=== PATIENT | female | born 1955 | race Two or more races ===

== ENCOUNTER 2016-04-30 16:24 | Outpatient (CLI) | payer OTHER | END 2016-04-30 16:25 | disposition home or self-care (01) | DX: R10.2 Pelvic and perineal pain (principal) ==

== ENCOUNTER 2018-06-19 08:00 | Outpatient (CLI) | payer BC, OTHER | END 2018-06-19 23:59 | disposition home or self-care (01) | LOC: LAB.R 08:00 | PROVIDERS: ATTEND Physician Assistant | DX: R35.0 Frequency of micturition (principal) | CPT/HCPCS: 87086 ==

== ENCOUNTER 2018-07-22 07:48 | Outpatient (CLI) | payer BC ==
[2018-07-22] MEDS ORDERED: IOVERSOL 320 100 ML VIAL IVP ONE ×2 (08:11→08:13)
[2018-07-22 08:12] LABS: CALCIUM 9.6 mg/dL (8.5-10.3); CREATININE 0.8 mg/dL (0.4-1.0)
--- NOTE | 2018-07-23 18:17 | CT Report ---
Reason: HEMATURIA GROSS,FLANK PAIN,RIGHT Procedure Date: 07/22/2018 Accession Number: [id number] / [id number] Procedure: CT - IVP CPT Code: FULL RESULT: EXAM: CT ABDOMEN AND PELVIS WITHOUT AND WITH CONTRAST (CT IVP) EXAM DATE: 07/22/2018 08:41 AM. CLINICAL HISTORY: HEMATURIA GROSS,FLANK PAIN,RIGHT. COMPARISONS: PELVIC W/TRANSVAGINAL 04/30/2016 5:34 PM. TECHNIQUE: Routine helical imaging was performed through the kidneys, ureters and bladder in the precontrast, postcontrast and delayed phase. IV Contrast: OPTI 320 100 ML. Reconstructions: Coronal and sagittal. In accordance with CT protocol optimization, one or more of the following dose reduction techniques were utilized for this exam: automated exposure control, adjustment of mA and/or KV based on patient size, or use of iterative reconstructive technique. FINDINGS: Lung Bases: Unremarkable. Right Kidney/Ureter: No stones, hydronephrosis, or solid-appearing masses. Left Kidney/Ureter: No stones, hydronephrosis, or solid-appearing masses. Other Abdominal Organs: The liver, spleen, pancreas, gallbladder, and adrenal glands are unremarkable. Peritoneal Cavity/Bowel: No free fluid, free air or adenopathy. No masses. Bowel loops appear unremarkable with note of moderate stool burden. Pelvic Organs: No bladder stones, obstruction or masses. The visualized pelvic organs are unremarkable. Vasculature: Normal. Bones: No significant abnormality. Other: Breast implants. IMPRESSION: Negative CT IVP. No urinary tract solid masses, stones, or obstruction. RADIA
== END 2018-07-22 07:49 | disposition home or self-care (01) ==
LOC: LAB 07:48
PROVIDERS: ATTEND Family Medicine
DX: R10.9 Unspecified abdominal pain (principal); R31.0 Gross hematuria
CPT/HCPCS: 36415; 74178; 80048; Q9967

== ENCOUNTER 2018-08-10 13:34 | Outpatient (CLI) | payer BC ==
--- NOTE | 2018-08-10 15:28 | DEXA Report ---
Reason: BONE DISORDER Procedure Date: 08/10/2018 Accession Number: [id number] / [id number] Procedure: DEX - Dexa Spine and/or Hip CPT Code: FULL RESULT: EXAM: Dexa Spine and/or Hip DATE: 08/10/2018 2:14 PM CLINICAL HISTORY: BONE DISORDER TECHNIQUE: Dual energy x-ray absorptiometry (DXA) was performed on a [employer] System. Regions measured are the AP Spine, femoral neck, and if needed forearm. COMPARISON: None. In accordance with the International Society for Clinical Densitometry (ISCD) guidelines, data from previous exams may be reanalyzed using current recommendations and techniques. This is done to allow a more accurate basis for comparison with the current study. FINDINGS: The data for the lumbar spine is as follows: BMD (g/cm/cm) T-SCORE Z-SCORE REGION L1 0.973 -1.3 0.2 L2 1.033 -1.4 0.1 L3 1.194 0.0 1.4 L4 1.176 -0.2 1.3 TOTAL 1.105 -0.6 0.8 NOTE: All evaluable vertebrae are used for classification The data for the hip is as follows: BMD (g/cm/cm) T-SCORE Z-SCORE REGION Neck 0.815 -1.6 -0.2 TOTAL 0.866 -1.1 0.0 NOTE: The femoral neck or total proximal femur, whichever is lowest, is used for classification. IMPRESSION: THE WHO CLASSIFICATION BASED ON THE INTERNATIONAL REFERENCE STANDARD IS OSTEOPENIA. THE FRACTURE RISK IS INCREASED. RECOMMENDATION: Patients with diagnosis of osteoporosis or osteopenia should have regular bone mineral density assessment. For those eligible for Medicare, routine testing is allowed once every 2 years. Testing frequency can be increased for patients who have rapidly progressing disease or for those who are receiving medical therapy to restore bone mass. COMMENT: World Health Organization (WHO) definitions for osteoporosis and osteopenia: NORMAL BMD: T-score at -1.0 or higher, fracture risk is low OSTEOPENIA BMD: T-score between -1.0 and -2.5, fracture risk is increased. OSTEOPOROSIS BMD: T-score at -2.5 or lower, fracture risk is high. National Osteoporosis Foundation recommends: 1. Obtain adequate dietary calcium (at least 1200 mg per day) and vitamin D (400-800 international units per day). 2. Participate, as appropriate, in regular weightbearing and muscle-strengthening exercise. 3. Avoid tobacco use and reduce alcohol and caffeine intake. 4. For more detailed information see the website at www.NOF.org.
== END 2018-08-10 13:35 | disposition home or self-care (01) ==
LOC: DI 13:34
PROVIDERS: ATTEND Family Medicine
DX: M85.88 Other specified disorders of bone density and structure, other site (principal)
CPT/HCPCS: 77080

== ENCOUNTER 2018-08-10 13:42 | Outpatient (CLI) | payer BC ==
--- NOTE | 2018-08-10 15:13 | Mammography Report ---
Reason: SCREEING MAMMO Procedure Date: 08/10/2018 Accession Number: [id number] / [id number] Procedure: PRETTY - Screening Mammo Impl w/Job CPT Code: FULL RESULT: EXAM: Screening Mammo Impl w/Job DATE: 08/10/2018 2:23 PM CLINICAL HISTORY: Screening TECHNIQUE: (B) - Bilateral CC and MLO views were obtained. COMPARISON: 12/16/2016 PARENCHYMAL PATTERN: (A) - The breasts demonstrate scattered fibroglandular densities bilaterally. FINDINGS: No change in superior right intracapsular implant rupture. There are no suspicious masses, calcifications, or areas of distortion. IMPRESSION: Benign findings. BI-RADS category 2. RECOMMENDATION: (ANNUAL) - Recommend routine annual screening mammography. BI-RADS CATEGORY: (2) - Benign Findings. STANDARD QUALIFYING STATEMENTS: 1. This examination was not reviewed with the aid of Computer-Aided Detection (CAD). 2. A negative or benign imaging report should not preclude biopsy if clinically suspicious findings are present. 3. Dense breasts may obscure an underlying neoplasm. 4. This examination was reviewed with the aid of 3D breast imaging (tomosynthesis).
== END 2018-08-10 13:43 | disposition home or self-care (01) ==
LOC: DI 13:42
PROVIDERS: ATTEND Family Medicine
DX: Z12.31 Encounter for screening mammogram for malignant neoplasm of breast (principal); T85.43XA Leakage of breast prosthesis and implant, initial encounter
CPT/HCPCS: 77063; 77067

== ENCOUNTER 2019-09-10 09:30 | Outpatient (CLI) | payer BC | END 2019-09-10 23:59 | disposition home or self-care (01) | LOC: LAB.R 09:30 | PROVIDERS: ATTEND Physician Assistant Medical | DX: R30.0 Dysuria (principal) | CPT/HCPCS: 87086 ==

== ENCOUNTER 2019-09-17 16:04 | Outpatient (CLI) | payer BC ==
[2019-09-17 18:08] LABS: BILIRUBIN,URINE NEGATIVE (NEGATIVE); GLUCOSE, URINE (UA) NEGATIVE (NEGATIVE); KETONES,URINE (UA) NEGATIVE (NEGATIVE); LEUKOCYTE ESTERASE, URINE NEGATIVE (NEGATIVE); NITRITE,URINE NEGATIVE (NEGATIVE); OCCULT BLOOD,URINE NEGATIVE (NEGATIVE); PROTEIN,URINE NEGATIVE (NEGATIVE); UROBILINOGEN,URINE 0.2 (NORMAL) E.U./dL (NORMAL)
[2019-09-17 18:30] LABS: CLARITY,URINE CLEAR (CLEAR)
== END 2019-09-17 23:59 | disposition home or self-care (01) ==
LOC: LAB.WCP 16:04
PROVIDERS: ATTEND Physician Assistant Medical
DX: R30.0 Dysuria (principal)
CPT/HCPCS: 81001; 81003; 87086

== ENCOUNTER 2019-09-19 16:04 | Outpatient (CLI) | payer BC | END 2019-09-19 23:59 | LOC: COV 16:04 | PROVIDERS: ATTEND Nurse Practitioner Family | DX: R51 Headache (principal); M79.10 Myalgia, unspecified site; R53.83 Other fatigue; R50.9 Fever, unspecified; R06.09 Other forms of dyspnea; Z20.828 Contact with and (suspected) exposure to other viral communicable diseases ==

== ENCOUNTER 2019-11-22 13:04 | Outpatient (CLI) | payer BC ==
--- NOTE | 2019-11-23 12:03 | Mammography Report ---
BILATERAL DIGITAL SCREENING MAMMOGRAM 3D/2D WITH AUGMENTATION: 11/22/2019 CLINICAL: Routine screening. Comparison is made to exams dated: 08/10/2018 mammogram and 12/16/2016 mammogram - [facility]. The tissue of both breasts is heterogeneously dense. This may lower the sensitivity of m ammography. No significant masses, calcifications, or other findings are seen in either breast. There has been no significant interval change. IMPRESSION: NEGATIVE There is no mammographic evidence of malignancy. A 1 year screening mammogram is recommended. This exam was interpreted at Station ID: [id number]. NOTE: For mammograms, a report in lay terms will be sent to the patient. Approximately 15% of breast malignancies will not be visualized mammographically. In the management of a palpable breast mass, a negative mammogram must not discourage biopsy of a clinically suspicious lesion. Electronically Signed By: Devon Holguin M.D. ddp/penrad:11/22/2019 13:54:06 ACR BI-RADS Category 1: Negative 3341F PARENCHYMAL PATTERN: (D) - The breast(s) demonstrate(s) heterogeneously dense fibroglandular clive ch. BI-RADS CATEGORY: (1) - 1 RECOMMENDATION: (ANNUAL) - Recommend routine annual screening mammography. [id number] 1 year screening LATERALITY: (B)
== END 2019-11-22 13:05 | disposition home or self-care (01) ==
LOC: DI.N 13:04
DX: Z12.31 Encounter for screening mammogram for malignant neoplasm of breast (principal)
CPT/HCPCS: 77063; 77067

== ENCOUNTER 2019-11-27 13:18 | Outpatient (CLI) | payer BC ==
[2019-11-27 14:18] VITALS: BP 129/79
--- NOTE | 2019-11-27 14:18 | SLEEP CARE CONSULTATION ---
Information from patient questionnaire entered by Adriana Morris. I have reviewed and concur with the information entered by Adriana Morris. This document represents the service I personally performed and the decisions made by me, Antonia Gao ARNP. History of Present Illness Service Date and Time: 11/27/2019 1318 Reason for Visit: New patient Chief Complaint: reports: Snoring (with allergy season), Excessive daytime sleepiness (some during mid-day), Fatigue (*excess). denies: Insomnia, Unrefreshed sleep, Observed pauses in breathing, Frequent awakenings at night (doesn't remember awakenings) Date of Onset: 5-6 months (sleepiness/fatigue), years (snoring) Usual bedtime: 4001-1390 Time it takes to fall asleep: 10-20 minutes Snores at night: Yes (during allergy season or when congested) Observed to quit breathing while asleep: No Sleeps alone due to snoring: No Number of times waking at night: 6-8 per fitbit, 0-2 that patient remembers Reasons for waking at night: reports: Snoring, Gasping for air (rarely), Pain, Bathroom, Other (varies, usually 1 bathroom waking at about 3am). denies: Choking Toss, Turn, or Twitch while sleeping: Yes (I think so) Recalls having dreams: Yes (sometimes) Usually gets out of bed at: 0991-9944 Feels refreshed in the morning: Yes (mostly, sometimes no) Morning headache: No Sleepy or fatigued during the day: Yes Ever fallen asleep while driving: No Takes day naps: Yes (sometimes) Dreams during day naps: No Prior sleep studies: No Additional HPI information: I had the pleasure of seeing ANDRY SOL today regarding the possibility of her having a sleep disorder. Her current complaints are excess fatigue daily, some daytime sleepiness, and snoring mostly with allergy season. She got sick in August, fatigue and also was having hematuria. She did not have Covid per test. She is still fatigued and has gained 10-15 pounds. She has a general fatigue every day. She was dozing off for 2-4 hours at a time on average until the last few weeks when it changed and now she averages 20-30 minutes. She is not sleeping as well as before because her Fitbit is showing she is not resting/waking up multiple times. She is still having some bleeding issues for which she is working with her urologist. She is not as active since she retired in April 2019. Her son has sleep apnea and is on a CPAP. - Parasomnia Symptoms Ever been unable to move upon waking from sleep: No Walks in sleep: No Talks in sleep: No Ever acted out dreams in sleep: No Ever felt weak in the knees when startled or emotional: No Bothered by creepy, crawly, restless sensations in legs: No Problems with memory or concentration: Yes (off lately, memory slipping more) Subjective Initial [place] Sleepiness Scale score: 12 (in 2020) Past Medical History Past Medical History: reports: Anemia (borderline anemia), Depression (years ago when Mother , only treated for 6 months), Other (low bone density (take supplements), Allergic Rhinitis and itchy eyes, UTI's with bleeding (borderline anemia)). denies: Hypertension, Congestive Heart Failure, Diabetes, Stroke, Coronary Heart Disease, Arrythmia, Hypothyroidism, Anxiety, Mood disorder, GERD, Attention deficit Social History The patient's occupation is RETIRED. Patient is and lives in [place]. Have you smoked in the past 12 months: No Alcohol use: Yes Alcohol amount and frequency: 1 glass, 3x/year Caffeine use: Yes Caffeine amount and frequency: 1-2 cups tea/day Family History Family history of sleep disordered breathing: Yes Family Hx Sleep Apnea: Other: Snoring (child/son), Sleep apnea - Treated (son) Allergies and Home Medications Drug allergies reviewed: Yes (erythromycin, sensitivity) Home medication list reviewed: Yes Allergy and home medication list: Vitamin D3 Calcium Probiotic Centrum Silver Women's Vitamin supplement Flonase prn Olapatadine HCL 1 % prn Review of Systems Weight gain over past 5 years: 30-35 Weight loss over past 5 years: 30 but gained 15 back Cardiovascular: denies: high blood pressure, palpitations, chest pain, irregular heart rate or pulse, leg or foot swelling Respiratory: denies: shortness of breath Gastrointestinal: reports: other (constipation sometimes). denies: heartburn, difficulty swallowing Urinary: reports: frequency (sometimes), other (hematuria) Neurological: reports: headaches, head trauma (concussions), other (memory/word finding slowness at times). denies: seizure, speech dysfunction, gait or balance problems Psychiatric: reports: depression (when mother (1997)). denies: Attention Deficit Hyperactivity, anxiety, mood disorder, claustrophobia Ear/Nose/Throat: reports: nasal congestion, sinus problems, dry mouth/throat, injury to nose (broken nose 2x; had septoplasty to fix after the first fracture), wisdom teeth removed. denies: nose bleeds, tonsillectomy Endocrine: reports: sluggishness, too hot or cold Musculoskeletal: reports: joint pain (at times), neck pain (old injury), back pain (old injury), muscle pain or cramping (sometimes) Immunologic: reports: sneezing, itching (eyes), allergies to food or environment (*environment, especially tree pollen, some wilson (karma family), freshly cut grasses, smoke (fires/cigarettes)) Physical Exam Blood Pressure: 129/79 Cuff size: regular Heart Rate: 64 O2 Saturation: 98 Height: 5 ft 4 in Weight: 146 lb Body Mass Index: 25.0 BMI Classification: Overweight Neck circumference: 13.5 (inches) HEENT: No craniofacial malformation Nostrils: patent to airflow Turbinates: normal Septum: midline Mouth and throat: narrow oropharynx Soft palate: normal Hard palate: Torus palatinus Uvula: normal Uvula visualization: 50% Mallampati Class II Tongue: normal in size Tonsils: 1+ Chin and jaw: normal size and position Neck: normal w/o lymphadenopathy or thyromegaly Heart: regular rate and rhythm Lungs: clear bilaterally Impression and Plan 1. Suspected Obstructive Sleep Apnea-Hypopnea Syndrome, as suggested by a history of irregular snoring, gasping or choking in sleep, cognitive impairment, and excessive daytime sleepiness. I reviewed with patient that a narrow oropharynx and obesity are common predisposing factors for obstructive sleep apnea-hypopnea syndrome. I recommend proceeding to polysomnography to confirm the diagnosis and to assess severity. If the patient has significant sleep disordered breathing, a manual CPAP titration study will also be performed to find the optimal treatment pressure. I informed the patient of what the sleep studies involve and after some discussion, obtained agreement to proceed. The pathophysiology of obstructive sleep apnea-hypopnea syndrome was discussed with the patient and health risks of cardiovascular and cerebrovascular disease if not treated. AASM brochure for obstructive sleep apnea-hypopnea syndrome given and reviewed. Risks of drowsy driving discussed in detail and patient advised to avoid long distance driving and to tub puller at the first sign of drowsiness. Patient agreed to plan. * Schedule polysomnography +- manual CPAP titration study. * Avoid long distance driving or driving when feeling sleepy. * Avoid alcohol, sedative and muscle relaxant around bedtime. * Attempt to lose weight. * Review instructions provided by trained office staff on how to prepare for the sleep study. * Return for follow-up after sleep study completed. Visit Type: In Office Location of Provider: Office Time Spent with Patient (minutes): 30 Provider Statement: I spent 100% of the Face to Face Visit with the patient with greater than 50% spent counseling the patient and coordination of care.
== END 2019-11-27 13:19 | disposition home or self-care (01) ==
LOC: SC 13:18
PROVIDERS: ATTEND Nurse Practitioner Family
DX: R53.83 Other fatigue (principal); G47.10 Hypersomnia, unspecified; G47.8 Other sleep disorders; R06.83 Snoring; E66.3 Overweight; Z68.25 Body mass index [BMI] 25.0-25.9, adult
CPT/HCPCS: 99203; 99212

== ENCOUNTER 2019-11-28 08:00 | Outpatient (CLI) | payer BC ==
[2019-11-28 18:55] LABS: CREATININE 0.8 mg/dL (0.4-1.0)
== END 2019-11-28 23:59 | disposition home or self-care (01) ==
LOC: LAB.WCP 08:00
PROVIDERS: ATTEND Family Medicine
DX: R51 Headache (principal); R41.3 Other amnesia
CPT/HCPCS: 36415; 81599; 82565; 86592

== ENCOUNTER 2019-12-06 09:08 | Outpatient (CLI) | payer BC ==
[2019-12-06] MEDS ORDERED: GADOBUTROL 7.5 MMOL/7.5 ML VIAL ONE (10:20)
--- NOTE | 2019-12-06 11:39 | MRI Report ---
PROCEDURE: Brain W/WO INDICATIONS: Headache CONTRAST: IV CONTRAST: Gadavist ml: 6.5 TECHNIQUE: Noncontrast axial T1 spin echo, axial T2 fast spin echo, sagittal and axial FLAIR, coronal T2 fast sp in echo, axial gradient echo, axial diffusion and ADC through the brain. After the administration of contrast, axial and coronal T1 spin echo with fat saturation through the brain. COMPARISON: None. FINDINGS: Image quality: Excellent. CSF spaces: Basal cisterns are patent. No extra-axial fluid collections. Ventricles are normal in size and shape. Brain: No midline shift. No intracranial bleeds or masses. No abnormal intracranial enhancement. There is cerebral volume loss for age. There is periventricular white matter chronic small vessel is chemic change. The brainstem appears normal. Diffusion-weighted images demonstrate no acute ischemi c insults. No chronic ischemic insults. Normal intravascular flow voids are present. Skull and face: Calvarial marrow is normal in signal. Orbits appear normal. Sinuses: Sinuses and mastoids appear clear. IMPRESSION: Unremarkable MRI of the brain. No explanation for headache. Reviewed by: Laci Nolan MD on 12/06/2019 11:38 AM PDT Approved by: Laci Nolan MD on 12/06/2019 11:38 AM PDT Station ID: [id number]
[2019-12-06] MEDS ORDERED: GADOBUTROL 7.5 MMOL/7.5 ML VIAL IVP ONE (11:44)
== END 2019-12-06 09:09 | disposition home or self-care (01) ==
LOC: DI 09:08
PROVIDERS: ATTEND Family Medicine
DX: R51.9 Headache, unspecified (principal)
CPT/HCPCS: 70553; A9585

== ENCOUNTER 2019-12-11 12:52 | Outpatient (CLI) | payer BC | END 2019-12-11 12:53 | disposition home or self-care (01) | LOC: SC 12:52 | PROVIDERS: ATTEND Nurse Practitioner Family | DX: R09.02 Hypoxemia (principal); G47.10 Hypersomnia, unspecified; R53.83 Other fatigue; G47.8 Other sleep disorders; R06.83 Snoring; E66.3 Overweight; Z68.25 Body mass index [BMI] 25.0-25.9, adult | CPT/HCPCS: 95806 ==

== ENCOUNTER 2019-12-19 13:30 | Outpatient (CLI) | payer BC ==
--- NOTE | 2019-12-19 10:46 | SLEEP CARE CONSULTATION ---
Information from patient questionnaire entered by Adriana Morris. I have reviewed and concur with the information entered by Adriana Morris. This document represents the service I personally performed and the decisions made by , Antonia Gao ARNP. History of Present Illness Service Date and Time: 12/19/2019 1020 Initial [place] Sleepiness Scale score: 12 (in 2019) Additional HPI information: ANDRY SOL returns for follow up and results of the recently performed home sleep study. The patient was informed of the following findings: HST showed no significant sleep disordered breathing with an average AHI of 4.3 and a jamil oxygen saturation of 84%. Her supine AHI was elevated at 6.2 and non-supine AHI 0.64. Patient does not have significant sleep disordered breathing but has elevated AHI in supine position so advised positional therapy. Methods to achieve positional management therapy were discussed; such as, positioning with pillows. Patient has light snoring. Snoring can be reduced by weight loss. Weight loss is best achieved with diet consult. Patient instructed to contact PCP for referral. Snoring can also be treated with an oral appliance from a dentist. Advised to check insurance coverage. In addition, an ENT evaluation can be do to see if other treatment is indicated. Patient counseled not drink alcohol less than 4 hours before bedtime as it can increase snoring and apnea. Patient was cautioned about risks of drowsy driving until sleepiness symptoms resolve. Sleep Study - Results Type of Sleep Study: Home sleep study Prior sleep studies: No Year and Where: 11/2019 [facility] Polysomnography/Home Sleep Study results: Physician Impression: The quality of the study is good. The length of the study is adequate (> 240 minutes). Please also see the tabulated and graphic data. 1. No significant sleep-disordered breathing, with an AHI of 4.3/hr and jamil SaO2 of 84%. During the study, the patient had 27 apneas (27 obstructive, 0 central, 0 mixed) and 12 hypopneas. The longest episode lasted 59.5 seconds. The few respiratory events occurred almost exclusively during supine sleep (supine AHI was 6.2 and non-supine, 0.64). 2. Hypoxemia (ICD-10 R09.02), minimal, with the lowest oxygen saturation of 84 % and 0.9 minutes with SaO2 under 90%. Baseline oxygen saturation was normal (Average oxygen saturation was 97%). Allergies and Home Medications Drug allergies reviewed: Yes (erythromycin sensitive) Home medication list reviewed: Yes (no changes) Review of Systems Review of systems same as previous: Yes (no changes) Physical Exam Vital signs obtained and entered by: Telehealth visit, no vitals obtained Height: 5 ft 4 in Impression and Plan 1. Snoring but no significant sleep disordered breathing. Patient advised that often weight loss will reduce snoring as well as apnea risk. Since patients apnea is primarily in supine position, patient advised to avoid sleeping supine and agreed with plan. I informed patient that because of her fatigue and elevated supine AHI as well as an average AHI of 4.3 we could have her compete an in lab PSG to further evaluate for significant sleep disordered breathing. Patient would like to complete other testing first to see if they find other reasons for her fatigue. She was instructed to call if her symptoms worsen or if her other testing is not clear for etiology and we could go ahead with an in lab test. Patient voiced understanding. * Attempt to lose weight * Avoid alcohol consumption near bedtime * The patient is cautioned about driving until sleepiness is completely resolved. * Return as needed for follow up if her symptoms worsen, change or do not improve for reevaluation. Visit Type: Telehealth Video Video Type: [employer] Patient Location: Home Location of Provider: Home Patient agrees and consents to this telehealth visit type: Yes Patient agrees to have their insurance billed: Yes Time Spent with Patient (minutes): 15 Provider Statement: I spent 100% of the Telehealth Video Call with the patient with greater than 50% spent counseling the patient and coordination of care.
== END 2019-12-19 13:31 | disposition home or self-care (01) ==
LOC: SC 13:30
PROVIDERS: ATTEND Nurse Practitioner Family
DX: R06.83 Snoring (principal); R09.02 Hypoxemia; R53.83 Other fatigue

== ENCOUNTER 2020-08-05 08:00 | Outpatient (CLI) | payer BC | END 2020-08-05 23:59 | disposition home or self-care (01) | LOC: LAB.N 08:00 | PROVIDERS: ATTEND Family Medicine | DX: N39.0 Urinary tract infection, site not specified (principal) | CPT/HCPCS: 87077; 87086; 87181 ==

== ENCOUNTER 2020-09-08 10:38 | Outpatient (CLI) | payer BC ==
--- NOTE | 2020-09-08 16:11 | DEXA Report ---
PROCEDURE: Dexa Spine and/or Hip INDICATIONS: OSTEOPENIA TECHNIQUE: Dual energy x-ray absorptiometry (DXA) was performed on a [employer] System. Regions measur ed are the AP Spine, femoral neck, and if needed forearm. COMPARISON: None. FINDINGS: Lumbar Spine: Bone Mineral Density 1.093 g/cm/cm,T score -0.7, normal Left Hip: Bone Mineral Density 0.858 g/cm/cm,T score -1.2, normal osteopenia Left Femoral Neck: Bone Mineral Density 0.791 g/cm/cm, T score -1.8, mild to moderate osteopenia (T score greater or equal to -1.0: NORMAL) (T score from -1.1 to -2.4: OSTEOPENIA) (T score less than or equal to -2.5 to: OSTEOPOROSIS) Impression: Osteopenia most notable in the left femoral neck. Patients with diagnosis of osteoporosis or osteopenia should have regular bone mineral density assess ment. For those eligible for Medicare, routine testing is allowed once every 2 years. Testing frequ ency can be increased for patients who have rapidly progressing disease or for those who are receivin g medical therapy to restore bone mass. Reviewed by: Meka Monet MD on 09/08/2020 4:10 PM PDT Approved by: Meka Monet MD on 09/08/2020 4:10 PM PDT Station ID: [id number]
== END 2020-09-08 10:39 | disposition home or self-care (01) ==
LOC: DI 10:38
PROVIDERS: ATTEND Family Medicine
DX: M85.89 Other specified disorders of bone density and structure, multiple sites (principal)

== ENCOUNTER 2023-10-10 08:20 | Outpatient (CLI) | payer MEDICARE, OTHER ==
--- NOTE | 2023-10-11 11:42 | DEXA Report ---
PROCEDURE: Dexa Spine and/or Hip INDICATIONS: POST MENOPAUSAL TECHNIQUE: Dual energy x-ray absorptiometry (DEXA) was performed in the regions detailed below. COMPARISON: None. FINDINGS: Lumbar Spine: Bone Mineral Density 1.082 g/cm/cm,T score -0.8. Previously -0.7 Left Femoral Neck: Bone Mineral Density 0.752 g/cm/cm, T score -2.1. Previously -1.8 Left Total Hip: Bone Mineral Density 0.857 g/cm/cm,T score -1.2. Previously -1.2 FRAX 10-year Fracture Risk Assesment Tool 10 year risk of major osteoporotic fracture: 20.1% 10 year risk of hip fracture: 2.8% (T score greater or equal to -1.0: NORMAL) (T score from -1.1 to -2.4: OSTEOPENIA) (T score less than or equal to -2.5 to: OSTEOPOROSIS) IMPRESSION: Worsening osteopenia Patients with diagnosis of osteoporosis or osteopenia should have regular bone mineral density assess ment. For those eligible for Medicare, routine testing is allowed once every 2 years. Testing frequ ency can be increased for patients who have rapidly progressing disease or for those who are receivin g medical therapy to restore bone mass. Reviewed by: Samir Corrales MD on 10/11/2023 10:41 AM JANUSZ Approved by: Samir Corrales MD on 10/11/2023 10:41 AM JANUSZ Station ID: [id number]
== END 2023-10-10 08:21 | disposition home or self-care (01) ==
LOC: DI 08:20
PROVIDERS: ATTEND Physician Assistant
DX: M85.89 Other specified disorders of bone density and structure, multiple sites (principal); Z78.0 Asymptomatic menopausal state